=== PATIENT | male | born 1960 | race Caucasian/White ===

== ENCOUNTER 2019-12-21 14:41 | Inpatient (IN) ==
[2019-12-21] MEDS ORDERED: ASPIRIN CHEW 324 MG PO STA (15:11)
--- NOTE | 2019-12-21 15:23 | Emergency Department Note ---
History of Present Illness General Chief complaint: Chest Pain Stated complaint: CHEST PAIN Time Seen by Provider: 12/21/19 14:49 History of Present Illness Maximum Pain Intensity: 7 59-year-old male who presents to the emergency department with complaint of chest pain that started this morning around 3:57 AM. The patient reports that he woke up thinking that he was having reflux. He does have a history of frequent reflux, reporting that he eats late of an evening before going to bed. The patient is currently not on any reflux medications. 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 The school nurse gave the patient some Advil as there was no aspirin available. It was recommended that the patient come to the emergency department for further evaluation. The patient admits that the pain has somewhat improved since that time, currently rating his discomfort a 3 out of 10. The pain did radiate to the right neck and left shoulder region. The patient did not notice any worsening pain with position or activity. Other than prior history of hypertension and kidney stones, the patient denies history of hyperlipidemia or diabetes. His brother at the age of 53 from a myocardial infarction. The patient has not noticed any peripheral edema. He denies any extended travel. He denies prior history of clotting disorders or blood clots. His last physical within the past month was normal. Home Medications Home Medications Medication Instructions Recorded Confirmed Type ibuprofen [Advil] 400 mg PO Q6H PRN 12/21/19 12/21/19 History lactobacillus combination no.4 0 mmu cells PO DAILY 12/21/19 12/21/19 History [Probiotic] magnesium oxide,aspartate,citr 1 mg PO DAILY 12/21/19 12/21/19 History [Triple Magnesium Complex] multivitamin 1 tab PO DAILY 12/21/19 12/21/19 History Allergies Allergy/AdvReac Type Severity Reaction Status Date / Time No Known Allergies Allergy Verified 12/21/19 16:59 Past Med/Surg History Medical History Kidney stones Surgical History Hx of tonsillectomy Family History Brother Heart disease Fatal [place] at age 53 Social History Smoking Status: Never smoker Second Hand Exposure: No; Do You Dip or Chew Tobacco: No; Tobacco Cessation Education Requested by Patient: No Hx Alcohol Use: Yes Alcohol Intake Frequency: 2-3 x/Week Hx Substance Use: No Preferred Language: [place]al[place] Communication Ability: Effective Resaw Operator Required: No Beliefs That Will Affect Care: None marital status: Current Living Situation: Spouse current occupational status: employed Other Information That Helps Us Care for You: No Feels Safe at Home: Yes Safety Concerns: Feels Safe At This Time Assistive Devices: None Review of Systems 10 system review was performed and was negative except for pertinent positives and negatives as indicated in history of present illness Physical Exam Vital Signs Vital Signs - 24 hr 12/21/19 14:46 12/21/19 15:11 12/21/19 16:00 Temperature 36.5 C Temperature Source Oral Pulse Rate 58 L 57 L 61 Pulse Rate from SpO2 Sensor 55 L Respiratory Rate 18 20 15 Respiratory Effort / Characteristics Non-Labored Spontaneous Respiratory Depth Normal Respiratory Pattern Regular Blood Pressure 151/99 H Blood Pressure Mean 111 Blood Pressure Position Sitting Pulse Oximetry 97 95 Oxygen Delivery Method Room Air Room Air Room Air Sepsis Recent Fever Within 48 Hours No Sepsis New/Unexplained Change in Mental Status N/A Sepsis Action Taken by Nursing No Action Required 12/21/19 16:24 12/21/19 16:30 12/21/19 17:00 Temperature Temperature Source Pulse Rate 61 60 66 Pulse Rate from SpO2 Sensor 61 59 L 64 Respiratory Rate 20 17 17 Respiratory Effort / Characteristics Respiratory Depth Respiratory Pattern Blood Pressure 142/84 H 128/93 151/91 H Blood Pressure Mean 113 111 104 Blood Pressure Position Pulse Oximetry 97 97 98 Oxygen Delivery Method Room Air Room Air Sepsis Recent Fever Within 48 Hours Sepsis New/Unexplained Change in Mental Status Sepsis Action Taken by Nursing 12/21/19 17:35 Temperature Temperature Source Pulse Rate 66 Pulse Rate from SpO2 Sensor Respiratory Rate 17 Respiratory Effort / Characteristics Respiratory Depth Respiratory Pattern Blood Pressure 151/91 H Blood Pressure Mean Blood Pressure Position Pulse Oximetry 98 Oxygen Delivery Method Room Air Sepsis Recent Fever Within 48 Hours Sepsis New/Unexplained Change in Mental Status Sepsis Action Taken by Nursing CONSTITUTIONAL: Healthy and well nourished. Patient does not appear in any acute distress. HEENT: Normocephalic, atraumatic. Pupils equal, round and reactive. No scleral icterus or conjunctival injection/pallor. NECK: Full active range of motion without discomfort. No JVD or carotid bruits. LYMPHATICS: No cervical chain adenopathy. RESPIRATORY: Clear to auscultation bilaterally with no wheezing, crackles, rhonchi or stridor. CARDIOVASCULAR: Regular rate and rhythm with no murmurs, rubs or gallops. GASTROINTESTINAL: Bowel sounds present in all quadrants. Abdomen is soft and nontender to palpation. No abdominal bruits on auscultation, or palpable p ulsatile masses. MUSCULOSKELETAL: Full range of motion of all joints without discomfort. INTEGUMENTARY: No rash or other significant dermatologic conditions noted. HEMATOLOGIC: No ecchymosis or petechiae. PSYCHIATRIC: Positive affect. NEUROLOGIC: No focal neurologic deficits noted. Course Course Patient history and physical exam were performed. Nurses notes were reviewed. Vital signs were reviewed. The patient is mildly bradycardic at 58 bpm. He is not tachypneic or febrile. IV access was established, and labs were drawn. The patient was administered aspirin 324 mg. An initial ECG showed a sinus bradycardia 59 bpm with a PVC. No ST elevations or T wave inversions noted. The patient was placed on monitor car operator. A portable chest x-ray did not show any consolidations, failure pattern, pneumothorax, subdiaphragmatic free air or cardiomegaly. Review of labs shows a troponin of 1.69. CBC, coagulation studies, D-dimer and CMP are otherwise grossly normal. Total CK is normal with a CK-MB of 15.1. Lipase was also normal. Upon reevaluation of the patient, he reported that he was pain-free "the best I felt all day". Findings were discussed with Dr. Márquez, ED attending physician, as well as Dr. Hairston, area intelligence technician, and LORENZO Moreno. The patient was ultimately taken to the cardiac [facility]. I did initially speak with the cardiac cath nurse regarding administering heparin she requested that we not do so until they evaluate him. Administered Medications Sodium Chloride (Nss 1000ml) 1,000 mls @ 100 mls/hr IV .Q10H PEPITO Stop: 12/22/19 03:44 Last Admin: 12/21/19 21:52 Dose: 100 mls/hr Documented by: [id number] Heparin Sodium/Dextrose (Heparin Sodium/Dextrose) 25,000 units in 500 mls @ 28 mls/hr IV .[id number] [facility]; Protocol Stop: 01/20/20 20:14 Last Admin: 12/21/19 21:51 Dose: 1,400 units/hr, 28 mls/hr Documented by: [id number] Cosigned by: [id number] Metoprolol Tartrate (Metoprolol Tartrate 25 Mg Tab) 25 mg PO BID PEPITO Stop: 01/20/20 20:59 Last Admin: 12/21/19 23:08 Dose: 25 mg Documented by: [id number] Discontinued Medications Aspirin (Aspirin Chew 324 Mg) 324 mg PO NOW STA Stop: 12/21/19 15:12 Last Admin: 12/21/19 15:34 Dose: 324 mg Documented by: [id number] Fentanyl Citrate (Fentanyl Citrate 100 Mcg/2 Ml Vial) Confirm Administered Dose 100 mcg .ROUTE .STK-MED ONE Stop: 12/21/19 17:19 Last Increment: 12/21/19 18:52 Dose: 25 mcg Documented by: [id number] Increment: 12/21/19 18:47 Dose: 50 mcg Documented by: [id number] Heparin Sodium (Porcine) (Heparin Sod (Porcine) 1000 Unit/Ml 10 Ml Vial) 8,000 units IV ONE ONE Stop: 12/21/19 16:33 Last Admin: 12/21/19 16:56 Dose: 8,000 units Documented by: [id number] Cosigned by: [id number] Heparin Sodium (Porcine) (Heparin Sod (Porcine) 1000 Unit/Ml 10 Ml Vial) Confirm Administered Dose 10,000 units .ROUTE .STK-MED ONE Stop: 12/21/19 16:50 Last Admin: 12/21/19 16:58 Dose: Not Given Documented by: [id number] Heparin Sodium (Porcine) (Heparin (Porcine) 1000 Unit/Ml 10 Ml ([facility] Use Only)) Confirm Administered Dose 10,000 units .ROUTE .STK-MED ONE Stop: 12/21/19 17:19 Last Admin: 12/21/19 18:47 Dose: 4,000 units Documented by: [id number] Heparin Sodium/Dextrose (Heparin Iv Standard *No* Bolus) 1 ea IV Q15M [facility]; Protocol Stop: 12/21/19 21:31 Last Admin: 12/21/19 22:46 Dose: Not Given Documented by: [id number] Admin: 12/21/19 22:45 Dose: Not Given Documented by: [id number] Admin: 12/21/19 22:45 Dose: Not Given Documented by: [id number] Admin: 12/21/19 22:45 Dose: Not Given Documented by: [id number] Heparin Sodium/Sodium Chloride (Heparin In Nss Infusion 1000 Unit/500 Ml (2 U/Ml) Bag) Confirm Administered Dose 3,000 units IV .STK-MED ONE Stop: 12/21/19 17:20 Last Admin: 12/21/19 18:47 Dose: 3,000 units Documented by: [id number] Midazolam HCl (Midazolam Hcl 1 Mg/Ml 2ml Vial) Confirm Administered Dose 2 mg .ROUTE .STK-MED ONE Stop: 12/21/19 17:19 Last Admin: 12/21/19 18:47 Dose: 2 mg Documented by: [id number] Miscellaneous Information (Patient's Allergy Info Needs Entered) 1 ea N/A NOW STA Stop: 12/21/19 16:43 Last Admin: 12/21/19 16:58 Dose: 1 ea Documented by: [id number] Nicardipine HCl (Nicardipine Hcl Inj 2.5 Mg/Ml 10 Ml Amp) Confirm Administered Dose 25 mg .ROUTE .STK-MED ONE Stop: 12/21/19 17:19 Last Admin: 12/21/19 18:47 Dose: 25 mg Documented by: [id number] Nitroglycerin/Dextrose (Nitroglycerin/D5w 100mcg/Ml 20ml Syr) Confirm Administered Dose 2,000 mcg .ROUTE .STK-MED ONE Stop: 12/21/19 17:20 Last Admin: 12/21/19 18:48 Dose: 2,000 mcg Documented by: [id number] Ticagrelor (Ticagrelor 90 Mg Tab) Confirm Administered Dose 180 mg PO .STK-MED ONE Stop: 12/21/19 18:47 Last Admin: 12/21/19 18:48 Dose: 180 mg Documented by: [id number] Critical Care Time Critical Care Time: Yes Total Critical Care Time: 35 I have personally spent 35 minutes of critical care time in the direct management of this patient. This includes bedside care, interpretation of diagnostic studies, and testing, discussion with consultants, patient, and family members, and other required patient management activities. This 35 minutes is in excess of all separately billable procedures. Medical Decision Making Medical Records Attestation: I reviewed the patient's medical records. Home Medications Current Medication List: was personally reviewed by me Laboratory Data Attestation: I reviewed the patient's lab results. Result diagrams: 12/21/19 15:15 12/21/19 15:15 Lab Results 12/21/19 12/21/19 12/21/19 Range/Units 15:15 15:15 15:15 WBC 8.64 (4.8-10.8) K/uL RBC 4.92 (4.7-6.1) M/uL Hgb 15.6 (14.0-18.0) g/dL Hct 44.8 (42-52) % MCV 91.1 (80-100) fL MCH 31.7 (25-34) pg MCHC 34.8 (32-36) g/dL RDW Std Deviation 40.9 (36.4-46.3) fL RDW Coeff of Devin 12.2 (11.5-14.5) % Plt Count 248 (130-400) K/uL MPV 9.3 (7.4-10.4) fL Immature Gran % (Auto) 0.2 % Neut % (Auto) 60.6 % Lymph % (Auto) 25.5 % [place] % (Auto) 10.4 % Eos % (Auto) 2.7 % Baso % (Auto) 0.6 % Neut # (Auto) 5.24 (1.4-6.5) K/uL Lymph # (Auto) 2.20 (1.2-3.4) K/uL [place] # (Auto) 0.90 H (0.11-0.59) K/uL Eos # (Auto) 0.23 (0-0.5) K/uL Baso # (Auto) 0.05 (0-0.2) K/uL Immature Gran # (Auto) 0.02 (0.00-0.02) K/uL PT 10.4 (9.0-12.0) Seconds INR 1.0 (0.9-1.1) APTT 27.6 (21.0-31.0) Seconds PTT Ratio 1.0 D-Dimer 190 (0-500) ug/L FEU Sodium 141 (136-145) mmol/L Potassium 4.0 (3.5-5.1) mmol/L Chloride 107 (98-107) mmol/L Carbon Dioxide 30 (21-32) mmol/L Anion Gap 4.0 (3-11) BUN 15 (7-18) mg/dl Creatinine 1.10 (0.6-1.4) mg/dl Est Cr Clr Drug Dosing 79.9 ml/min Est GFR ( Amer) 85.3 Est GFR (Non-Af Amer) 73.6 BUN/Creatinine Ratio 13.7 (10-20) Glucose 69 L (70-99) mg/dl Calcium 8.7 (8.5-10.1) mg/dl Total Bilirubin 0.4 (0.2-1) mg/dl AST 27 (15-37) U/L ALT 36 (12-78) U/L Alkaline Phosphatase 70 (45-117) U/L Total Creatine Kinase 240 (39-308) U/L CK-MB (CK-2) 15.1 H (0.5-3.6) ng/ml CK/CKMB % Calc 6.3 H (0-3.0) Troponin I 1.690 H* (0-0.045) ng/ml Total Protein 7.7 (6.4-8.2) gm/dl Albumin 3.8 (3.4-5.0) gm/dl Globulin 3.9 (2.5-4.0) gm/dl Albumin/Globulin Ratio 1.0 (0.9-2) Lipase 101 (73-393) U/L COVID-19 Eval Order SARS-CoV-2, RNA, NAAT (NEGATIVE) 12/21/19 12/21/19 Range/Units 16:40 16:40 WBC (4.8-10.8) K/uL RBC (4.7-6.1) M/uL Hgb (14.0-18.0) g/dL Hct (42-52) % MCV (80-100) fL MCH (25-34) pg MCHC (32-36) g/dL RDW Std Deviation (36.4-46.3) fL RDW Coeff of Devin (11.5-14.5) % Plt Count (130-400) K/uL MPV (7.4-10.4) fL Immature Gran % (Auto) % Neut % (Auto) % Lymph % (Auto) % [place] % (Auto) % Eos % (Auto) % Baso % (Auto) % Neut # (Auto) (1.4-6.5) K/uL Lymph # (Auto) (1.2-3.4) K/uL [place] # (Auto) (0.11-0.59) K/uL Eos # (Auto) (0-0.5) K/uL Baso # (Auto) (0-0.2) K/uL Immature Gran # (Auto) (0.00-0.02) K/uL PT (9.0-12.0) Seconds INR (0.9-1.1) APTT (21.0-31.0) Seconds PTT Ratio D-Dimer (0-500) ug/L FEU Sodium (136-145) mmol/L Potassium (3.5-5.1) mmol/L Chloride (98-107) mmol/L Carbon Dioxide (21-32) mmol/L Anion Gap (3-11) BUN (7-18) mg/dl Creatinine (0.6-1.4) mg/dl Est Cr Clr Drug Dosing ml/min Est GFR ( Amer) Est GFR (Non-Af Amer) BUN/Creatinine Ratio (10-20) Glucose (70-99) mg/dl Calcium (8.5-10.1) mg/dl Total Bilirubin (0.2-1) mg/dl AST (15-37) U/L ALT (12-78) U/L Alkaline Phosphatase (45-117) U/L Total Creatine Kinase (39-308) U/L CK-MB (CK-2) (0.5-3.6) ng/ml CK/CKMB % Calc (0-3.0) Troponin I (0-0.045) ng/ml Total Protein (6.4-8.2) gm/dl Albumin (3.4-5.0) gm/dl Globulin (2.5-4.0) gm/dl Albumin/Globulin Ratio (0.9-2) Lipase (73-393) U/L COVID-19 Eval [facility] SARS-CoV-2, RNA, NAAT NEGATIVE (NEGATIVE) Imaging Data Attestation: I personally reviewed and interpreted this imaging study as fol lows: My Impression: My interpretation of reportable chest x-ray does not show any consolidations, pneumothorax, cardiac prominence or subdiaphragmatic air. Radiologist report was also reviewed. Radiologist's Impression: XR chest 1V portable HISTORY: 59 years-old Male Chest Pain acute atypical chest pain COMPARISON: None TECHNIQUE: Portable AP view of the chest FINDINGS: Cardiac silhouette is upper limits of normal in size. No pneumothorax, pleural effusion, airspace consolidation or overt pulmonary edema. Mild right hemidiaphragmatic elevation. Degenerative changes of the shoulders and spine. IMPRESSION: No acute process. ECG Data Attestation: I personally reviewed and interpreted this ECG as follows: Indication: + chest pain, + diaphoresis, + nausea and + SOB/dyspnea Rate (beats per minute): 59 Rhythm: + sinus bradycardia ECG Intervals/blocks: + Normal QRS and + Normal QT ECG [place]: + Normal ECG Findings: + PVCs Comparison ECG Date: no prior available Blood Pressure Blood Pressure Findings: Normal blood pressure MDM Narrative Cardiac monitoring: An order was placed for continuous cardiac monitoring. The monitor shows a rate of 59 bpm with a normal sinus rhythm and PVC rhythm. air sampling and monitoring history was reviewed throughout the evaluation, and no dys rhythmias were noted. Findings today show evidence for a non-STEMI. Patient has typical symptoms for major cardiac event. HEART score = 2-3 given age, obesity and family history of myocardial infarction. PERC score is 0, and with a normal D-dimer, I do not suspect pulmonary embolism. Chest x-ray does not show evidence for pneumonia, pneumothorax or heart failure. Additional laboratory studies are not suggestive of pancreatitis, cholecystitis or hepatitis. The patient is afebrile and has no leukocytosis or other symptoms to suggest upper respiratory infection. Impression & Plan NSTEMI (non-ST elevated myocardial infarction) Discharge Plan Visit Data Chief Complaint: Chest Pain Stated Complaint: CHEST PAIN ED Provider: Mercy Márquez ED Midlevel Provider: Zackary Goncalves Discharge Problem: NSTEMI (non-ST elevated myocardial infarction) Patient Disposition: Still a Patient Discharge Instructions Interventions: ED Discharge Assessment Last Done: 12/21/19 17:35
[2019-12-21 15:25] LABS: Basophils # (auto) 0.05 K/uL (0-0.2); Basophils % (auto) 0.6 %; Eosinophils # (auto) 0.23 K/uL (0-0.5); Eosinophils % (auto) 2.7 %; Hematocrit (blood only) 44.8 % (42-52); Hemoglobin 15.6 g/dL (14.0-18.0); Immature Granulocytes # (auto) 0.02 K/uL (0.00-0.02); Immature Granulocytes % (auto) 0.2 %; Lymphocytes % (auto) 25.5 %; Mean Corpuscular Hemoglobin 31.7 pg (25-34); Mean Corpuscular Hgb Conc 34.8 g/dL (32-36); Mean Corpuscular Volume 91.1 fL (80-100); Mean Platelet Volume 9.3 fL (7.4-10.4); Monocytes % (auto) 10.4 %; Neutrophils # (auto) 5.24 K/uL (1.4-6.5); Neutrophils % (auto) 60.6 %; Platelet Count 248 K/uL (130-400); RDW Coefficient of Variation 12.2 % (11.5-14.5); RDW Standard Deviation 40.9 fL (36.4-46.3); Red Blood Count 4.92 M/uL (4.7-6.1); White Blood Count 8.64 K/uL (4.8-10.8)
[2019-12-21 15:36] LABS: D Dimer 190 ug/L FEU (0-500); Partial Thromboplastin Time 27.6 Seconds (21.0-31.0); Prothrombin Time 10.4 Seconds (9.0-12.0)
--- NOTE | 2019-12-21 15:37 | XRay Report ---
XR chest 1V portable HISTORY: 59 years-old Male Chest Pain acute atypical chest pain COMPARISON: None TECHNIQUE: Portable AP view of the chest FINDINGS: Cardiac silhouette is upper limits of normal in size. No pneumothorax, pleural effusion, airspace con solidation or overt pulmonary edema. Mild right hemidiaphragmatic elevation. Degenerative changes of the shoulders and spine. IMPRESSION: No acute process. ACT 112: Negative or not required by law. The above report was generated using voice recognition software. It may contain grammatical, syntax o r spelling errors. Electronically signed by: Garfield Alvarez M.D. 12/21/2019 3:36 PM
[2019-12-21 15:45] LABS: Albumin Level 3.8 gm/dl (3.4-5.0); BUN Creatinine Ratio 13.7 (10-20); Calcium 8.7 mg/dl (8.5-10.1); Creatinine Clr Calc Pharmacy 79.9 ml/min; Est GFR (African American) 85.3; Est GFR (Non-African American) 73.6
[2019-12-21 15:53] LABS: Bilirubin,Total 0.4 mg/dl (0.2-1); Creatine Kinase MB 15.1 ng/ml (0.5-3.6); Globulin 3.9 gm/dl (2.5-4.0); Total Protein 7.7 gm/dl (6.4-8.2); Troponin I 1.69 ng/ml (0-0.045)
[2019-12-21] MEDS ORDERED: HEPARIN SOD (PORCINE) 1000 UNIT/ML 10 ML VIAL IV ONE (16:32)
[2019-12-21] MEDS ORDERED: PATIENT'S ALLERGY INFO NEEDS ENTERED STA (16:42)
[2019-12-21] MEDS ORDERED: HEPARIN SOD (PORCINE) 1000 UNIT/ML 10 ML VIAL ONE (16:49)
[2019-12-21] MEDS ORDERED: fentaNYL citrate 100 MCG/2 ML VIAL ONE (17:18)
[2019-12-21] MEDS ORDERED: niCARdipine HCL INJ 2.5 MG/ML 10 ML AMP ONE (17:18)
[2019-12-21] MEDS ORDERED: MIDAZOLAM HCL 1 MG/ML 2ML VIAL ONE (17:18)
[2019-12-21] MEDS ORDERED: HEPARIN (PORCINE) 1000 UNIT/ML 10 ML (CATH LAB USE ONLY) ONE (17:18)
[2019-12-21] MEDS ORDERED: NITROGLYCERIN/D5W 100MCG/ML 20ML SYR ONE (17:19)
--- NOTE | 2019-12-21 17:52 | Pre Anesthesia Assessment ---
Date of Service December 21, 2019 Pre Sedation Assessment Vital Signs Temp Pulse Resp BP Pulse Ox 12/21/19 17:35 66 17 151/91 H 98 12/21/19 17:00 66 17 151/91 H 98 12/21/19 16:30 60 17 128/93 97 12/21/19 16:24 61 20 142/84 H 97 12/21/19 16:00 61 15 95 12/21/19 15:11 57 L 20 151/99 H 12/21/19 14:46 97.7 F 58 L 18 97 Cardiovascular RRR, no murmur, no edema Respiratory normal respiratory effort, lungs clear to auscultation Pre-Sedation Airway Assessment Smoking Status: Never smoker Hx Sleep Apnea: No Hx Difficult Intubation: No Short, Thick Neck: No Thyromental Distance: > or= 3.5 Finger Breadths Oral Cavity: + WNL Mallampati Class: III ASA: ASA3 Procedure Planning Contraindications for Sedation: none Current Medications Reviewed: Yes Notes The planned sedation has been discussed with the patient. Informed Consent was obtained. I have identified the patient, determined the appropriateness of sedation and have assessed the patient immediately prior to the procedure. All medicine(s) and interventions are by my order.
--- NOTE | 2019-12-21 17:55 | History & Physical Report ---
Date of Service December 21, 2019 Assessment & Plan (1) NSTEMI (non-ST elevated myocardial infarction): -Patient presenting with reports of chest discomfort, diaphoresis, shortness of breath, lightheadedness -In the ED, initial troponin 1.69, EKG without acute ST changes -Risk factors: + Family history (brother fatal [place] at age 53) -Patient currently chest pain-free, hemodynamically stable -Received full dose aspirin -ED notified Dr. Hairston, plan cardiac catheterization this evening -Heparin [address] Hairston -Further recommendations after cardiac cath (2) DVT prophylaxis: -SCDs for now History of Present Illness Chief Complaint: Chest pain Primary Care Provider: Efren Faria MD 59-year-old male with no significant PMH who presents to the ED for evaluation of chest pain. Patient reports he woke up around 3:00 this morning with feelings of indigestion and anxiety. Patient reports he was able to fall back asleep. He woke up feeling in his usual state of health and had his usual cup of coffee. Patient reports that while he was driving to work, he started to feel indigestion again. 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 Patient was seen by the school nurse and was given Advil. Patient reports he started to feel better after that. Patient called PCPs office to make an appointment however was referred to the ED for further evaluation. Patient reports he has been having feelings of indigestion over the past several weeks. Currently, patient reports he is chest pain-free. He reports he otherwise has been feeling well recently. No other recent illnesses, fevers, chills. Denies abdominal pain, nausea, vomiting, diarrhea. No cough or sputum production. Denies urinary symptoms. In the ED, initial troponin is 1.69, EKG without acute ST changes. Patient is hemodynamically stable. Dr. Hairston was notified by the ED and patient will be going to the [facility] H[facility] Supervisor this evening. Patient received a full dose aspirin and heparin 8000 unit bolus. Allergies Allergy/AdvReac Type Severity Reaction Status Date / Time No Known Allergies Allergy Verified 12/21/19 16:59 Home Medications Home Medications Medication Instructions Recorded Confirmed Type ibuprofen [Advil] 400 mg PO Q6H PRN 12/21/19 12/21/19 History lactobacillus combination no.4 0 mmu cells PO DAILY 12/21/19 12/21/19 History [Probiotic] magnesium oxide,aspartate,citr 1 mg PO DAILY 12/21/19 12/21/19 History [Triple Magnesium Complex] multivitamin 1 tab PO DAILY 12/21/19 12/21/19 History Past Med/Surg History Medical History Kidney stones Surgical History Hx of tonsillectomy Family History (Updated 12/21/19 @ 19:23 by LORENZO Valenzuela) Brother Heart disease Fatal [place] at age 53 Social History Smoking Status: Never smoker Second Hand Exposure: No; Do You Dip or Chew Tobacco: No; Tobacco Cessation Education Requested by Patient: No Hx Alcohol Use: Yes Alcohol Intake Frequency: 2-3 x/Week Hx Substance Use: No Preferred Language: Lao Communication Ability: Effective Wet Suit Gluer Required: No Beliefs That Will Affect Care: None marital status: Current Living Situation: Spouse current occupational status: employed Other Information That Helps Us Care for You: No Feels Safe at Home: Yes Safety Concerns: Feels Safe At This Time Assistive Devices: None Review of Systems Review of Systems: ROS per HPI, all other systems reviewed and negative Physical Exam Constitutional: WD/WN, vitals as above Eyes: PERRL, conjunctivae normal, anicteric sclerae ENMT: external ear and nose normal, oropharynx normal Respiratory: normal respiratory effort, lungs clear to auscultation Cardiovascular: Rate/Rhythm: regular rate and regular rhythm Vessels: normal peripheral pulses Extremities: no edema Gastrointestinal (Abdomen): normal bowel sounds, soft, nontender, no hepatosplenomegaly Musculoskeletal: no cyanosis or clubbing, extremities motor strength 5/5 Skin: no rashes, warm and dry Neurologic: PERRL, EOMI, accommodation nl, no face palsy, no dysarthria Psychiatric: A+Ox3, euthymic affect Results & Data Results & Data ([facility]) Vital Signs (Past 12 Hours) Vital Signs Temp Pulse Resp BP Pulse Ox 12/21/19 17:35 66 17 151/91 H 98 12/21/19 17:00 66 17 151/91 H 98 12/21/19 16:30 60 17 128/93 97 12/21/19 16:24 61 20 142/84 H 97 12/21/19 16:00 61 15 95 12/21/19 15:11 57 L 20 151/99 H 12/21/19 14:46 36.5 C 58 L 18 97 Laboratory Results Short CBC 12/21/19 Range/Units 15:15 WBC 8.64 (4.8-10.8) K/uL Hgb 15.6 (14.0-18.0) g/dL Hct 44.8 (42-52) % Plt Count 248 (130-400) K/uL BMP 12/21/19 15:15 Sodium 141 Potassium 4.0 Chloride 107 Carbon Dioxide 30 BUN 15 Creatinine 1.10 Glucose 69 L Calcium 8.7 Cardiac Enzymes 12/21/19 Range/Units 15:15 Total Creatine Kinase 240 (39-308) U/L CK-MB (CK-2) 15.1 H (0.5-3.6) ng/ml Troponin I 1.690 H* (0-0.045) ng/ml Liver Function 12/21/19 Range/Units 15:15 Total Bilirubin 0.4 (0.2-1) mg/dl AST 27 (15-37) U/L ALT 36 (12-78) U/L Alkaline Phosphatase 70 (45-117) U/L Albumin 3.8 (3.4-5.0) gm/dl Diagnostic Findings CXR IMPRESSION: No acute process. 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 He has not had this kind of pain before and the pain is associated with shortness of breath Has been free of any pain in the emergency room and the relevant blood test showed that his troponin is elevated He was taken to cardiac [facility] Supervisor from the emergency room On examination Lying in bed comfortably Hemodynamically stable blood pressure towards upper side at 151/91 Chest-clear to auscultate bilaterally Heart-S1-S2 no murmur appreciated Abdomen-benign Extremities-negative for any edema MEDICAL DELIVERY DRIVER-alert, awake and oriented x3 His admission labs, EKG and imaging studies reviewed Troponin is elevated to 1.690 without any significant EKG changes Has NSTEMI and the patient will be going to cardiac [facility] Supervisor Agree with assessment and plan as outlined above by Kathrin Murphy
--- NOTE | 2019-12-21 17:57 | Cardiology Consultation ---
Date of Consultation December 21, 2019 Assessment & Plan (1) NSTEMI (non-ST elevated myocardial infarction): Patient here with high risk NSTEMI and recommend further evaluation with urgent cardiac catheterization. Discussed risk, benefits, alternatives of procedure and he is willing to proceed. Further recommendations pending findings of catheterization. History of Present Illness History of Present Illness Mr. Chamberlain is a very pleasant 59-year-old man seen urgently in the ED in the setting of NSTEMI. Patient reports chest pain beginning approximately 830 this morning, around 9 hours prior to time of interview. Reports intermittent less severe chest discomfort throughout today. Denies having similar pain in the past. Has been in his usual state of health prior to pain beginning. At baseline active wi thout any change in recent exercise tolerance. In ED 2 out of 10 chest pain. Hypertensive to 150s. Initial EKG showed sinus bradycardia with no significant ST changes and occasional PVCs. Initial troponin elevated at 1.6. Chest x-ray unremarkable. Given aspirin, heparin in ED. Currently patient chest pain-free. Past medical historyhistory of kidney stones. Family history remarkable for brother who from [place] at age 53. Social history: Denies tobacco, heavy alcohol use. Allergies Allergy/AdvReac Type Severity Reaction Status Date / Time No Known Allergies Allergy Verified 12/21/19 16:59 Home Medications Home Medications Medication Instructions Recorded Confirmed Type ibuprofen [Advil] 400 mg PO Q6H PRN 12/21/19 12/21/19 History lactobacillus combination no.4 0 mmu cells PO DAILY 12/21/19 12/21/19 History [Probiotic] magnesium oxide,aspartate,citr 1 mg PO DAILY 12/21/19 12/21/19 History [Triple Magnesium Complex] multivitamin 1 tab PO DAILY 12/21/19 12/21/19 History Patient History Medical History Kidney stones Surgical History Hx of tonsillectomy Family History (Updated 12/21/19 @ 19:23 by LORENZO Valenzuela) Brother Heart disease Fatal [place] at age 53 Social History Smoking Status: Never smoker Second Hand Exposure: No; Do You Dip or Chew Tobacco: No; Tobacco Cessation Education Requested by Patient: No Hx Alcohol Use: Yes Alcohol Intake Frequency: 2-3 x/Week Hx Substance Use: No Preferred Language: Tamazight Communication Ability: Effective Strip Stamp Straightener Required: No Beliefs That Will Affect Care: None marital status: Current Living Situation: Spouse current occupational status: employed Other Information That Helps Us Care for You: No Feels Safe at Home: Yes Safety Concerns: Feels Safe At This Time Assistive Devices: None Review of Systems Review of Systems: All systems reviewed & are unremarkable except as noted in HPI & below Physical Exam Physical Exam: General: Comfortable, no acute distress HEENT: Sclerae anicteric, mucous membranes moist Lungs: Clear to auscultation bilaterally, no rhonchi or wheezes Cardiac: Regular rate and rhythm, no murmurs. No JVD. Abdomen: Soft, nontender, nondistended, positive bowel sounds. Extremities: Warm, well perfused, no edema. 2+ radial pulses Skin: No rashes or lesions. Neuro: Nonfocal Psych: Alert orient x3, normal affect and mood Results & Data ([facility]) Vital Signs (Past 12 Hours) Vital Signs Temp Pulse Resp BP Pulse Ox 12/21/19 17:35 66 17 151/91 H 98 12/21/19 17:00 66 17 151/91 H 98 12/21/19 16:30 60 17 128/93 97 12/21/19 16:24 61 20 142/84 H 97 12/21/19 16:00 61 15 95 12/21/19 15:11 57 L 20 151/99 H 12/21/19 14:46 97.7 F 58 L 18 97 PG Care Time/CCT Total # of Minutes Spent Total Time Spent with Patient: Total time spent is greater than 50% in coordination of care (as documented) at patient's floor/unit and/or counseling patient: Coding Level of Care Code 04618 Inpt Consult Level 4 Diagnoses NSTEMI (non-ST elevated myocardial infarction) I21.4
[2019-12-21] MEDS ORDERED: TICAGRELOR 90 MG TAB PO ONE (18:46)
[2019-12-21] MEDS ORDERED: ACETAMINOPHEN 325 MG TAB PO PRN (19:19)
[2019-12-21] MEDS ORDERED: NITROGLYCERIN SL 0.4 MG/TAB TAB SL PRN (19:19)
--- NOTE | 2019-12-21 20:12 | Post Anesthesia Assessment ---
Date of Service December 21, 2019 Post Sedation Assessment Vital Signs Temp Pulse Resp BP Pulse Ox 12/21/19 17:35 66 17 151/91 H 98 12/21/19 17:00 66 17 151/91 H 98 12/21/19 16:30 60 17 128/93 97 12/21/19 16:24 61 20 142/84 H 97 12/21/19 16:00 61 15 95 12/21/19 15:11 57 L 20 151/99 H 12/21/19 14:46 97.7 F 58 L 18 97 Recovery Score Activity: Moves 4 extremities Respiration: Deep Breath/Cough Circulation: +/-20% PreAnes Value Consciousness: Fully Awake Oxygen Saturation: O2 needed for >90% Discharge Sedation Level of Care: Fast Track Phase II Post Sedation Plan On clinical assessment, the patient appears to have tolerated the sedation without complications. Patient is recovering as anticipated. Patient will continue to be monitored by nursing and may be discharged when sedation discharge criteria are met per below protocol. Upon Completions of procedure up to 15 minutes continue every 5 minute vital signs and the P.A.R. score; then discharge to a Phase I or Fast Track to Phase II per the following guidelines: * Discharge Patient to appropriate Phase II area if PAR is 8 or greater or return to pre- procedure baseline. The post - procedure orders will be as directed. * If PAR score is less than 8 or not return to pre-procedure baseline then patient will follow Phase I monitoring till PAR is reached for Phase II. The Phase I may be done in procedure room or may call to secure a Phase I area. * If naloxone or flumazenil are used for reversal, hold in Phase I for continued monitoring from when last reversal dose was given for a minimum of 60 minutes or longer pending the nurse and/or physician discretion of patient condition before discharge to Phase II. Please call the Sedation Physician to re-evaluate and complete post-note for discharge to Phase II area. Do NOT discharge from procedure sedation or Phase 1 until post- sedation evaluation note is complete by procedure /sedation MD Sedation Discharge Instructions to be given to the patient at discharge to home.
[2019-12-21] MEDS ORDERED: SODIUM CHLORIDE 0.9% 1000ML 1,000 ML IV SCH (20:15)
--- NOTE | 2019-12-21 20:23 | Post Operative Brief Note ---
Cardiology Brief Post Op Date of Surgery December 21, 2019 Pre & Post Diagnosis NSTEMI Procedure Cardiac catheterization/PCI Control Electrician Addi Hairston MD Senior Integration Architect Azael Estimated Blood Loss 10 Findings Consistent with Post-Op Diagnosis Severe 2 vessel CAD - 80% proximal LAD at bifurcation with D2 that has 95% ostial stenosis - 70-80% mid LAD. - Small D3 90% ostial stenosis - proximal RCA 90% - late-mid RCA 60%. Successful PCI of proximal to mid RCA with 3.0 x 18 mm Óscar JOI (post-dilated with 4.0 NC). Anesthesia Type RN Sedation Complications none Disposition Accompanied Patient To Recovery: No Disposition: PCU
[2019-12-21] MEDS: HEPARIN SODIUM/DEXTROSE 25,000 UNITS/500 ML BAG IV SCH (21:51)
--- NOTE | 2019-12-21 22:28 | Cardiac Catheterization ---
[facility] Data: Assignment Editor Cardiac Status Clinical evaluation leading to the procedure CAD Presenation: Non STEMI Anginal Classification: CCS IV Heart Failure: No Cardiogenic Shock within 24 Hours: No Cardiac Arrest within 24 Hours: No Imaging Studies Past 6 Months: No Stress Studies Past 6 Months: No Diagnostic Physicians Name: Addi Hairston MD Status: Urgent Closure Device Percutaneous Entry Location: Radial Closure Device: Radial Band Recommendations: PCI without planned CABG PCI Indication: PCI for high risk Non-MALOU Lesion Segment Name: Mid RCA Culprit Artery: Yes Stenosis Prior to Rx (%): 90 Chronic Total Occlusion: No IVUS: Yes FFR: No Pre-Procedure MONA Flow: 3 Previously Treated Lesion: No Lesion Complexity: Non-High/Non-C Lesion Length (mm): 15 Thrombus Present: No Bifurcation Lesion: No Guidewire Across Lesion: Stenosis Post-Procedure (%): 0 Post-Procedure MONA Flow: 3 Devices(s) Deployed: Yes Yes Intraprocedure Events Significant Disection: No Perforation: No Cardiac Cath Procedure Full Procedure Date December 21, 2019 Pre-Procedure Diagnosis Pre-Procedure Diagnosis: Non STEMI AUC Score AUC Score: 8 Post-Procedure Diagnosis Post-Procedure Diagnosis: Severe CAD, Successful PCI and Normal Intracardiac Pressures Procedure(s) Performed Procedure(s) Performed: Coronary Angiography, Left Heart Cath, Drug Eluting Stent and IVUS Window Shade Cloth Sewer Addi Hairston MD Laser Engraver(s) Azael Estimated Blood Loss Estimated Blood Loss: 10 Medication(s) Medication(s): Fentanyl, Heparin, Lidocaine 1%, Nicardipine, Nitroglycerin and Versed Medication(s): Ticagrelor Summary of Findings Indication: NSTEMI Access: 6 Fr right radial artery Catheters: Loman, JL 3.5, JR4, JR4 guide Findings: LM -large caliber, 20% distal disease prior to bifurcation LAD -medium caliber, hazy 80% proximal stenosis involving takeoff of medium caliber second diagonal. Second diagonal with 95% ostial stenosis. Late mid LAD with 80% stenosis. Distal vessel wraps around apex. Small third diagonal with 90% ostial stenosis Circumflex -medium caliber, high OM1 with 30% proximal stenosis. Mid circumflex with luminal irregularities. RCA -large caliber, dominant, 80 to 90% earlymid stenosis, late mid 60% stenosis. Intermittently ectatic in distal RCA and right posterior AV branch. LVEDP -8 -- PCI -- Antithrombotic therapy: Heparin, ticagrelor Procedure: RCA cannulated with JR4 guide BMW wire passed across lesion into distal vessel [place] IVUS catheter placed into late mid RCA. RCA with diffuse atherosclerotic plaque throughout the midsegment, most severe area 80 to 90% (MLA 2.9 mm), minimally calcified. Proximal to mid RCA stented with 3.0 x 18 mm Connelly drug-eluting stent Stent post-dilated with 4.0 noncompliant balloon IC vasodilators administered for spasm Post procedure MONA 3 flow, stent well expanded with minimal residual stenosis and no apparent cardiac complications. Arterial Closure: TR band Summary: 1. Severe 2 vessel coronary artery disease -80 to 90% earlymid RCA stenosis, 60% latemid stenosis 80% proximal LAD involving bifurcation with D2 with 95% ostial stenosis. 80% latemid LAD. Small D3 90% ostial 2. Normal intracardiac filling pressure 3. Successful PCI of proximal to mid RCA with single drug-eluting stent (3.0 x 18 mm Connelly; postdilated with 4.0 NC). Recommendations: To PCU for continued monitoring Loaded with ticagrelor 180 mg in cath Echo in the a.m. Plan for staged PCI of proximal and mid LAD along with proximal D2 tomorrow. Heparin infusion when TR band removed. Continue IV fluids. N.p.o. overnight. Continue dual-antiplatelet therapy for at least 1 year In the setting of diffuse atherosclerotic plaque will need aggressive ASCVD and lipid management going forward Consult cardiac Rehab Hemodynamics Rest Ao:: 119/67/23 Final Ao: 129/77/21 LV: 138/8 Recommendations Recommendations: PCI without planned CABG Specimens Specimens: None Radiation Exposure (mGy) 1708 Contrast (mls) 80 Fluids (cc crystalloids) Fluids (cc crystalloids): 100 Drains Drains: None Anesthesia Moderate Procedural Complication(s) None Disposition PCU I attest to the content of the Intraoperative Record and any orders documented therein. Any exceptions are noted below. [facility] Card Cath Procedure Codes Cardiac Catheterization Procedure 1: Cardiovascular Cath Procedures: 45550 Coronaries and LHC (+/-LV) Therapeutic Services & Ancillary Proc Procedure 1: Cardiovascular Tx and Anc Procedures: 39542 IV Ultrasound (Coronary or Graft) Moderate Sedation Procedure 1: Sedation/Anesthesia: 83569 Mod Sedation by the same physician;Init15 Min Child Age 5 & Up Procedure 2: Sedation/Anesthesia: 38238 Mod Sedation by the same physician; Ea [id number] Minutes Stenting Procedure 1: Cardiovascular Stent Procedures: 12861 Perc transcatheter placement of intracoronary stent(s), with ang PG Care Time/CCT Total # of Minutes Spent Total Time Spent with Patient: Total time spent is greater than 50% in coordination of care (as documented) at patient's floor/unit and/or counseling patient:
[2019-12-21] MEDS: Heparin IV Standard *NO* Bolus IV SCH ×2 (22:45→22:46)
[2019-12-21] MEDS: METOPROLOL TARTRATE 25 MG TAB PO SCH (23:08)
[2019-12-22 03:48] LABS: Hematocrit (blood only) 40.7 % (42-52); Hemoglobin 14.3 g/dL (14.0-18.0); Mean Corpuscular Hemoglobin 31.7 pg (25-34); Mean Corpuscular Hgb Conc 35.1 g/dL (32-36); Mean Corpuscular Volume 90.2 fL (80-100); Mean Platelet Volume 9.2 fL (7.4-10.4); Platelet Count 210 K/uL (130-400); RDW Coefficient of Variation 12.3 % (11.5-14.5); RDW Standard Deviation 40.6 fL (36.4-46.3); Red Blood Count 4.51 M/uL (4.7-6.1); White Blood Count 7.37 K/uL (4.8-10.8)
[2019-12-22 04:12] LABS: BUN Creatinine Ratio 16.4 (10-20); Calcium 8.3 mg/dl (8.5-10.1); Creatinine Clr Calc Pharmacy 87.9 ml/min; Est GFR (African American) 95.7; Est GFR (Non-African American) 82.6; Potassium 4.2 mmol/L (3.5-5.1)
[2019-12-22 04:19] LABS: Partial Thromboplastin Ratio 2.2
[2019-12-22 04:21] LABS: Troponin I 12.8 ng/ml (0-0.045)
[2019-12-22 04:40] LABS: Partial Thromboplastin Time 60.7 Seconds (21.0-31.0)
--- NOTE | 2019-12-22 05:35 | Electrocardiogram Report ---
Test Reason : Blood Pressure : / mmHG Vent. Rate : 059 BPM Atrial Rate : 059 BPM P-R Int : 150 ms QRS Dur : 086 ms QT Int : 412 ms P-R-T Axes : 042 032 034 degrees QTc Int : 407 ms Sinus bradycardia with occasional Premature ventricular complexes Otherwise normal ECG No previous ECGs available Confirmed by Cyril Odonnell ([id number]) on 12/22/2019 5:35:05 AM Referred By: Efren Faria Confirmed By:Cyril Odonnell
[2019-12-22] MEDS: TICAGRELOR 90 MG TAB PO SCH ×2 (06:38→19:49)
[2019-12-22 08:23] LABS: Chol HDL Ratio 5; Cholesterol 223 mg/dl (0-200); HDL Cholesterol 46 mg/dl; LDL Cholesterol Calculated 149 mg/dl; Triglycerides 140 mg/dl (0-150); VLDL Cholesterol 28 mg/dl
[2019-12-22 08:33] LABS: Estimated Average Glucose 114 mg/dl; Hemoglobin A1C 5.6 % (4.5-5.6)
[2019-12-22] MEDS: lisinopril 5 MG TAB PO SCH (09:07)
[2019-12-22] MEDS: METOPROLOL TARTRATE 25 MG TAB PO SCH ×2 (09:08→19:49)
[2019-12-22] MEDS: ASPIRIN 81 MG ECTAB PO SCH (09:08)
--- NOTE | 2019-12-22 11:22 | Cardiology Progress Note ---
Date of Service December 22, 2019 Assessment & Plan (1) NSTEMI (non-ST elevated myocardial infarction): 2. Multivessel CAD 3. Dyslipidemia Has remained chest pain free. Echo this morning showed preserved LV function. Plan for staged PCI of LAD/Diagonal today. - Continue heparin infusion - Continue DAPT with ASA/Ticagrelor - Continue metoprolol/lisinopril - Aggressive lipid management - change to crestor 40mg Admission and Anticipated Discharge Date Admission Date: December 21, 2019 Subjective Feeling well this morning. No additional chest pain. Telemetry unremarkable. Review of Systems Review of Systems: All systems reviewed & are unremarkable except as noted in HPI & below Physical Exam Physical Exam: General: Comfortable, no acute distress HEENT: Sclerae anicteric, mucous membranes moist Lungs: Clear to auscultation bilaterally Cardiac: Regular rate and rhythm, no murmurs Abdomen: Soft, nontender Extremities: Warm, well perfused, no edema. 2+ RT radial artery, no ecchym osis/hematoma Neuro: Nonfocal Psych: Alert orient x3, normal affect and mood Results & Data ([facility]) Vital Signs (Past 12 Hours) Vital Signs Temp Pulse Pulse Resp BP Pulse Ox 12/22/19 11:05 98.1 F 61 19 142/92 H 95 12/22/19 09:40 66 12/22/19 07:33 98.1 F 58 L 18 126/85 96 12/22/19 03:04 98.1 F 59 L 17 124/82 96 12/22/19 00:57 60 16 148/85 H 98 12/21/19 23:26 98.2 F 68 17 125/78 95 PG Care Time/CCT Total # of Minutes Spent Total Time Spent with Patient: Total time spent is greater than 50% in coordination of care (as documented) at patient's floor/unit and/or counseling patient: Coding Level of Care Code 62280 Subseq Hosp Care Lvl 3 Diagnoses NSTEMI (non-ST elevated myocardial infarction) I21.4
--- NOTE | 2019-12-22 11:45 | XCELERA ---
[id number]
--- NOTE | 2019-12-22 11:55 | Hospitalist Progress Note ---
Date of Service December 22, 2019 Assessment & Plan (1) NSTEMI (non-ST elevated myocardial infarction): Patient presented with reports of chest discomfort, diaphoresis, shortness of breath, lightheadedness In the ED, initial troponin 1.69, EKG without acute ST changes Risk factors: + Family history (brother fatal [place] at age 53) S/p Cardiac cath with PCI to prox to mid RCA yesterday Planned for staged PCI of prox and mid LAD today Continue heparin drip Currently on ASA and brilinta Started on statin Lipid panel showed total cholesterol of 223, LDL of 149, HDL 46 A1c of 5.6 (2) DVT prophylaxis: Currently on heparin for NSTEMI Admission and Anticipated Discharge Date Admission Date: December 21, 2019 Subjective Patient seen and examined Reports chest discomfort has resolved. Denied any dizziness, palpitations, cough, SOB, EVANS, nausea, vomiting Reports generalized weakness No fevers, chills No abd pain, diarrhea Physical Exam Constitutional: + well hydrated and + obese; no acute distress Eyes: PERRL, conjunctivae normal, anicteric sclerae ENMT: external ear and nose normal, oropharynx normal Respiratory: normal respiratory effort, lungs clear to auscultation Cardiovascular: RRR, no murmur, no edema Gastrointestinal (Abdomen): normal bowel sounds, soft, nontender, no hepatosplenomegaly Musculoskeletal: no cyanosis or clubbing, extremities motor strength 5/5 Neurologic: PERRL, EOMI, accommodation nl, no face palsy, no dysarthria Psychiatric: A+Ox3, euthymic affect Results & Data Results & Data ([facility]) Vital Signs (Past 12 Hours) Vital Signs Temp Pulse Pulse Resp BP Pulse Ox 12/22/19 11:05 36.7 C 61 19 142/92 H 95 12/22/19 09:40 66 12/22/19 07:33 36.7 C 58 L 18 126/85 96 12/22/19 03:04 36.7 C 59 L 17 124/82 96 12/22/19 00:57 60 16 148/85 H 98 Laboratory Results Laboratory Results - last 24 hr 12/21/19 12/21/19 12/21/19 15:15 15:15 15:15 WBC 8.64 RBC 4.92 Hgb 15.6 Hct 44.8 MCV 91.1 MCH 31.7 MCHC 34.8 RDW Std Deviation 40.9 RDW Coeff of Devin 12.2 Plt Count 248 MPV 9.3 Immature Gran % (Auto) 0.2 Neut % (Auto) 60.6 Lymph % (Auto) 25.5 Bradley % (Auto) 10.4 Eos % (Auto) 2.7 Baso % (Auto) 0.6 Neut # (Auto) 5.24 Lymph # (Auto) 2.20 Bradley # (Auto) 0.90 H Eos # (Auto) 0.23 Baso # (Auto) 0.05 Immature Gran # (Auto) 0.02 PT 10.4 INR 1.0 APTT 27.6 PTT Ratio 1.0 D-Dimer 190 Sodium 141 Potassium 4.0 Chloride 107 Carbon Dioxide 30 Anion Gap 4.0 BUN 15 Creatinine 1.10 Est Cr Clr Drug Dosing 79.9 Est GFR ( Amer) 85.3 Est GFR (Non-Af Amer) 73.6 BUN/Creatinine Ratio 13.7 Glucose 69 L Estimat Average Glucose Hemoglobin A1c Calcium 8.7 Total Bilirubin 0.4 AST 27 ALT 36 Alkaline Phosphatase 70 Total Creatine Kinase 240 CK-MB (CK-2) 15.1 H CK/CKMB % Calc 6.3 H Troponin I 1.690 H* Total Protein 7.7 Albumin 3.8 Globulin 3.9 Albumin/Globulin Ratio 1.0 Triglycerides Cholesterol LDL Cholesterol, Calc VLDL Cholesterol, Calc HDL Cholesterol Cholesterol/HDL Ratio Lipase 101 COVID-19 Eval Order SARS-CoV-2, RNA, NAAT 12/21/19 12/21/19 12/21/19 16:40 16:40 21:10 WBC RBC Hgb Hct MCV MCH MCHC RDW Std Deviation RDW Coeff of Devni Plt Count MPV Immature Gran % (Auto) Neut % (Auto) Lymph % (Auto) Bradley % (Auto) Eos % (Auto) Baso % (Auto) Neut # (Auto) Lymph # (Auto) Bradley # (Auto) Eos # (Auto) Baso # (Auto) Immature Gran # (Auto) PT INR APTT PTT Ratio D-Dimer Sodium Potassium Chloride Carbon Dioxide Anion Gap BUN Creatinine Est Cr Clr Drug Dosing Est GFR ( Amer) Est GFR (Non-Af Amer) BUN/Creatinine Ratio Glucose Estimat Average Glucose Hemoglobin A1c Calcium Total Bilirubin AST ALT Alkaline Phosphatase Total Creatine Kinase CK-MB (CK-2) CK/CKMB % Calc Troponin I 7.980 H* Total Protein Albumin Globulin Albumin/Globulin Ratio Triglycerides Cholesterol LDL Cholesterol, Calc VLDL Cholesterol, Calc HDL Cholesterol Cholesterol/HDL Ratio Lipase COVID-19 Eval [facility] SARS-CoV-2, RNA, NAAT NEGATIVE 12/22/19 12/22/19 12/22/19 03:31 03:31 03:31 WBC 7.37 RBC 4.51 L Hgb 14.3 Hct 40.7 L MCV 90.2 MCH 31.7 MCHC 35.1 RDW Std Deviation 40.6 RDW Coeff of Devin 12.3 Plt Count 210 MPV 9.2 Immature Gran % (Auto) Neut % (Auto) Lymph % (Auto) Bradley % (Auto) Eos % (Auto) Baso % (Auto) Neut # (Auto) Lymph # (Auto) Bradley # (Auto) Eos # (Auto) Baso # (Auto) Immature Gran # (Auto) PT INR APTT 60.7 H* PTT Ratio 2.2 D-Dimer Sodium 140 Potassium 4.2 Chloride 110 H Carbon Dioxide 26 Anion Gap 4.0 BUN 16 Creatinine 1.00 Est Cr Clr Drug Dosing 87.9 Est GFR ( Amer) 95.7 Est GFR (Non-Af Amer) 82.6 BUN/Creatinine Ratio 16.4 Glucose 96 Estimat Average Glucose Hemoglobin A1c Calcium 8.3 L Total Bilirubin AST ALT Alkaline Phosphatase Total Creatine Kinase CK-MB (CK-2) CK/CKMB % Calc Troponin I 12.800 H* Total Protein Albumin Globulin Albumin/Globulin Ratio Triglycerides Cholesterol LDL Cholesterol, Calc VLDL Cholesterol, Calc HDL Cholesterol Cholesterol/HDL Ratio Lipase COVID-19 Eval Order SARS-CoV-2, RNA, NAAT 12/22/19 12/22/19 03:31 03:31 WBC RBC Hgb Hct MCV MCH MCHC RDW Std Deviation RDW Coeff of Devin Plt Count MPV Immature Gran % (Auto) Neut % (Auto) Lymph % (Auto) Bradley % (Auto) Eos % (Auto) Baso % (Auto) Neut # (Auto) Lymph # (Auto) Bradley # (Auto) Eos # (Auto) Baso # (Auto) Immature Gran # (Auto) PT INR APTT PTT Ratio D-Dimer Sodium Potassium Chloride Carbon Dioxide Anion Gap BUN Creatinine Est Cr Clr Drug Dosing Est GFR ( Amer) Est GFR (Non-Af Amer) BUN/Creatinine Ratio Glucose Estimat Average Glucose 114 Hemoglobin A1c 5.6 Calcium Total Bilirubin AST ALT Alkaline Phosphatase Total Creatine Kinase CK-MB (CK-2) CK/CKMB % Calc Troponin I Total Protein Albumin Globulin Albumin/Globulin Ratio Triglycerides 140 Cholesterol 223 H LDL Cholesterol, Calc 149 VLDL Cholesterol, Calc 28 HDL Cholesterol 46 Cholesterol/HDL Ratio 5 Lipase COVID-19 Eval Order SARS-CoV-2, RNA, NAAT
[2019-12-22] MEDS: ROSUVASTATIN CALCIUM 20 MG TAB PO SCH (12:40)
[2019-12-22] MEDS ORDERED: niCARdipine HCL INJ 2.5 MG/ML 10 ML AMP ONE (14:50)
[2019-12-22] MEDS ORDERED: HEPARIN (PORCINE) 1000 UNIT/ML 10 ML (CATH LAB USE ONLY) ONE (14:50)
[2019-12-22] MEDS ORDERED: fentaNYL citrate 100 MCG/2 ML VIAL ONE ×2 (14:51→16:09)
[2019-12-22] MEDS ORDERED: NITROGLYCERIN/D5W 100MCG/ML 20ML SYR ONE (14:51)
[2019-12-22] MEDS ORDERED: MIDAZOLAM HCL 1 MG/ML 2ML VIAL ONE ×2 (14:51→16:09)
--- NOTE | 2019-12-22 15:41 | Pre Anesthesia Assessment ---
Date of Service December 22, 2019 Pre Sedation Assessment Vital Signs Temp Pulse Pulse Resp BP BP Pulse Ox 12/22/19 14:00 57 L 18 116/75 96 12/22/19 11:05 98.1 F 61 19 142/92 H 95 12/22/19 09:40 66 12/22/19 07:33 98.1 F 58 L 18 126/85 96 12/22/19 03:04 98.1 F 59 L 17 124/82 96 12/22/19 00:57 60 16 148/85 H 98 12/21/19 23:26 98.2 F 68 17 125/78 95 12/21/19 20:55 65 17 174/84 H 95 12/21/19 20:25 61 18 130/88 96 12/21/19 19:55 64 17 172/77 H 95 12/21/19 19:40 60 17 120/59 L 96 12/21/19 19:25 58 L 18 159/91 H 95 12/21/19 19:10 97.3 F L 56 L 17 141/93 H 96 12/21/19 17:35 66 17 151/91 H 98 12/21/19 17:00 66 17 151/91 H 98 12/21/19 16:30 60 17 128/93 97 12/21/19 16:24 61 20 142/84 H 97 12/21/19 16:00 61 15 95 Cardiovascular RRR, no murmur, no edema Respiratory normal respiratory effort, lungs clear to auscultation Pre-Sedation Airway Assessment Smoking Status: Never smoker Hx Sleep Apnea: No Hx Difficult Intubation: No Short, Thick Neck: No Thyromental Distance: > or= 3.5 Finger Breadths Oral Cavity: + WNL Mallampati Class: III ASA: ASA2 NPO Status Date of Last Intake of Fluids: 12/22/19 Time of Last Intake of Fluids: 07:00 Date of Last Intake of Solid Food: 12/21/19 Time of Last Intake of Solid Foods: 18:00 Procedure Planning Contraindications for Sedation: none Current Medications Reviewed: Yes Notes The planned sedation has been discussed with the patient. Informed Consent was obtained. I have identified the patient, determined the appropriateness of sedation and have assessed the patient immediately prior to the procedure. All medicine(s) and interventions are by my order.
[2019-12-22] MEDS ORDERED: SODIUM CHLORIDE 0.9% 1000ML 1,000 ML IV SCH (17:45)
--- NOTE | 2019-12-22 17:46 | Post Anesthesia Assessment ---
Date of Service December 22, 2019 Post Sedation Assessment Vital Signs Temp Pulse Pulse Resp BP Pulse Ox 12/22/19 14:00 57 L 18 116/75 96 12/22/19 11:05 98.1 F 61 19 142/92 H 95 12/22/19 09:40 66 12/22/19 07:33 98.1 F 58 L 18 126/85 96 12/22/19 03:04 98.1 F 59 L 17 124/82 96 12/22/19 00:57 60 16 148/85 H 98 12/21/19 23:26 98.2 F 68 17 125/78 95 12/21/19 20:55 65 17 174/84 H 95 12/21/19 20:25 61 18 130/88 96 12/21/19 19:55 64 17 172/77 H 95 12/21/19 19:40 60 17 120/59 L 96 12/21/19 19:25 58 L 18 159/91 H 95 12/21/19 19:10 97.3 F L 56 L 17 141/93 H 96 Recovery Score Activity: Moves 4 extremities Respiration: Deep Breath/Cough Circulation: +/-20% PreAnes Value Consciousness: Fully Awake Oxygen Saturation: O2 needed for >90% Discharge Sedation Level of Care: Fast Track Phase II Post Sedation Plan On clinical assessment, the patient appears to have tolerated the sedation without complications. Patient is recovering as anticipated. Patient will continue to be monitored by nursing and may be discharged when sedation discharge criteria are met per below protocol. Upon Completions of procedure up to 15 minutes continue every 5 minute vital signs and the P.A.R. score; then discharge to a Phase I or Fast Track to Phase II per the following guidelines: * Discharge Patient to appropriate Phase II area if PAR is 8 or greater or return to pre- procedure baseline. The post - procedure orders will be as directed. * If PAR score is less than 8 or not return to pre-procedure baseline then patient will follow Phase I monitoring till PAR is reached for Phase II. The Phase I may be done in procedure room or may call to secure a Phase I area. * If naloxone or flumazenil are used for reversal, hold in Phase I for continued monitoring from when last reversal dose was given for a minimum of 60 minutes or longer pending the nurse and/or physician discretion of patient condition before discharge to Phase II. Please call the Sedation Physician to re-evaluate and complete post-note for discharge to Phase II area. Do NOT discharge from procedure sedation or Phase 1 until post- sedation eval uation note is complete by procedure /sedation MD Sedation Discharge Instructions to be given to the patient at discharge to home.
--- NOTE | 2019-12-22 17:50 | Post Operative Brief Note ---
Cardiology Brief Post Op Date of Surgery December 22, 2019 Pre & Post Diagnosis Multivessel CAD Procedure -- Parts Cataloger Addi Hairston MD Sap Bods Developer Erik Estimated Blood Loss 10 Findings See Below 1. Successful PCI of proximal to mid LAD (2.75 x 28 Xience; post-dilated with 3. 5 NC). -PTCA ostium of D3 with 2.0 balloon. 2. Successful PCI of late-mid LAD (2.5 x 12 Óscar). 3. Successful PCI of late-mid to distal RCA with (3.0 x 30 [place]; post-dilated with 3.5 NC). Anesthesia Type RN Sedation Complications none Disposition Disposition: PCU
[2019-12-22] MEDS: HEPARIN SODIUM/DEXTROSE 25,000 UNITS/500 ML BAG IV SCH (18:43)
[2019-12-22] MEDS ORDERED: Nursing to Pharmacy Communication SCH (18:45)
--- NOTE | 2019-12-22 19:31 | Electrocardiogram Report ---
Test Reason : Blood Pressure : / mmHG Vent. Rate : 056 BPM Atrial Rate : 056 BPM P-R Int : 158 ms QRS Dur : 088 ms QT Int : 424 ms P-R-T Axes : 058 058 045 degrees QTc Int : [address] elevation, consider early repolarization Abnormal ECG When compared with ECG of 21-DEC-2019 14:56, Premature ventricular complexes are no longer Present Confirmed by Cyril Odonnell ([id number]) on 12/22/2019 7:30:54 PM Referred By: Efren Faria Confirmed By:Cyril Odonnell
[2019-12-22] MEDS ORDERED: ATORVASTATIN 40 MG TAB PO SCH (21:00)
--- NOTE | 2019-12-22 21:11 | Cardiac Catheterization ---
[facility] Data: Drilling Inspector Cardiac Status Clinical evaluation leading to the procedure CAD Presenation: Non STEMI Anginal Classification: CCS IV Heart Failure: No Cardiogenic Shock within 24 Hours: No Cardiac Arrest within 24 Hours: No Imaging Studies Past 6 Months: Yes Stress Studies Past 6 Months: No Diagnostic Physicians Name: Addi Hairston MD Status: Elective Closure Device Percutaneous Entry Location: Radial Closure Device: Radial Band Recommendations: PCI without planned CABG PCI Indication: PCI for high risk Non-MALOU Lesion Segment Name: proximal LAD Culprit Artery: Yes Stenosis Prior to Rx (%): 80-90 Chronic Total Occlusion: No IVUS: Yes FFR: No Pre-Procedure MONA Flow: 2 Previously Treated Lesion: No Lesion Complexity: High/C Lesion Length (mm): 28 Thrombus Present: Yes Bifurcation Lesion: Yes Guidewire Across Lesion: Stenosis Post-Procedure (%): 0 Post-Procedure MONA Flow: 3 Devices(s) Deployed: Yes Yes Lesion #2 Segment Name: mid to distal RCA Culprit Artery: No Stenosis Prior to Rx (%): 70 Chronic Total Occlusion: No IVUS: No FFR: No Pre-Procedure MONA Flow: 3 Previously Treated Lesion: No Lesion Complexity: Non-High/Non-C Lesion Length (mm): 28 Thrombus Present: No Bifurcation Lesion: No Guidewire Across Lesion: Yes Stenosis Post-Procedure (%): 0 Post-Procedure MONA Flow: 3 Devices(s) Deployed: Yes Intraprocedure Events Significant Disection: No Perforation: No Cardiac Cath Procedure Full Procedure Date December 22, 2019 Pre-Procedure Diagnosis Pre-Procedure Diagnosis: Non STEMI AUC Score AUC Score: 8 Post-Procedure Diagnosis Post-Procedure Diagnosis: Severe CAD, Successful PCI and Normal Intracardiac Pressures Procedure(s) Performed Procedure(s) Performed: Coronary Angiography, Left Heart Cath, Drug Eluting Stent and IVUS Market Research Associate Addi Hairston MD Superintendent Warehouse(s) [place] Estimated Blood Loss Estimated Blood Loss: 10 Medication(s) Medication(s): Fentanyl, Heparin, Lidocaine 1%, Nicardipine, Nitroglycerin and Versed Medication(s): Ticagrelor Summary of Findings Indication: Staged PCI Presented yesterday with high risk NSTEMI. Proximal RCA stented with a single JOI. Brought back today for intervention to severe proximal, mid LAD disease. Access: 6 Fr slender right radial artery Catheters: EBU 3.5 guide -- PCI -- Antithrombotic therapy: Heparin, ticagrelor Procedure: Left main cannulated with EBU 3.5 guide BMW wire passed across lesion into distal LAD Attempted to pass pilot instructor 50 wire into second diagonal but unable to cross subtota l occlusion. Grill Attendant 50 wire placed into third diagonal with 80% ostial stenosis. IVUS ([employer]) catheter placed into distal LAD. Pullback revealed severe mid disease and severe diffuse disease with thrombus extending from mid segment across second and third diagonals back to takeoff of high first diagonal Mid LAD lesion predilated with 2.0 compliant balloon Ostium of D3 dilated with 2.0 balloon Dilated mid LAD lesion stented with 2.5 x 12 mm [place] drug-eluting stent Stent postdilated with stent balloon Proximal to mid LAD stented with 2.75 x 28 mm Xience Lisa drug-eluting stent Repeat IVUS pullback revealed underexpanded proximal stent Stent post-dilated with 3.5 noncompliant balloon IC vasodilators administered for spasm Post procedure MONA 3 flow, stents well expanded with minimal residual stenosis and no apparent cardiac complications. Repeat angiography of right coronary artery revealed widely patent proximal mid stent but severe latemid disease with diffuse moderate disease extending into distal segment RCA cannulated with JR4 guide BMW wire placed into distal RCA Mid to distal RCA stented with 3.0 x 30 mm Óscar drug-eluting stent Stent postdilated with 3.5 NC balloon IC vasodilators administered for spasm Post procedure MONA 3 flow, stents well expanded with minimal residual stenosis and no apparent cardiac complications. Arterial Closure: TR band Summary: 1. Severe multi-vessel coronary artery disease -80% acute thrombotic proximal LAD stenosis, 80% latemid LAD stenosis. Subtotally occluded D2. 90% ostial D3 Initial proximal to mid RCA stent placed yesterday widely patent. 60 to 70% latemid RCA stenosis extending into distal RCA 2. Normal intracardiac filling pressure. LVEDP 9 3. Successful PCI of proximal to mid LAD with single drug-eluting stent (2.75 x 28 mm Xience; postdilated with 3.5 NC). -PTCA of 3rd diagonal ostium with 2.0 balloon 4. Successful PCI of latemid LAD with 2.5 x 12 mm Óscar drug-eluting stent 5. Successful PCI of mid to distal RCA with 3.0 x 30 mm [place] drug-eluting stent (postdilated with 3.5 NC). Recommendations: To PCU for continued monitoring Continue dual-antiplatelet therapy for at least 1 year. Consider extended in the setting of multivessel disease Continue aggressive ASCVD risk factor modification Consult cardiac Rehab Hemodynamics Rest Ao:: 111/79/95 Final Ao: 103/75/83 LV: 113/9 Recommendations Recommendations: PCI without planned CABG Specimens Specimens: None Radiation Exposure (mGy) 4101 Contrast (mls) 130 Fluids (cc crystalloids) Fluids (cc crystalloids): 204 Drains Drains: None Anesthesia Moderate Procedural Complication(s) None Disposition PCU I attest to the content of the Intraoperative Record and any orders documented therein. Any exceptions are noted below. In[employer] Card Cath Procedure Codes Cardiac Catheterization Procedure 1: Cardiovascular Cath Procedures: 45589 Left Heart Cath (+/-LV) Therapeutic Services & Ancillary Proc Procedure 1: Cardiovascular Tx and Anc Procedures: 10657 IV Ultrasound (Coronary or Graft) Moderate Sedation Procedure 1: Sedation/Anesthesia: 38067 Mod Sedation by the same physician;Init15 Min Child Age 5 & Up Procedure 2: Sedation/Anesthesia: 49785 Mod Sedation by the same physician; Ea [id number] Minutes Angioplasty Procedure 1: Cardiovascular Angioplasty Procedures: 24848 PTCA; ea addl branch of a major cor art RC LC LD Stenting Procedure 1: Cardiovascular Stent Procedures: 79839 Perc transcatheter placement of intracoronary stent(s), with ang Procedure 2: Cardiovascular Stent Procedures: 06136 Ea addl branch of a major coronary artery PG Care Time/CCT Total # of Minutes Spent Total Time Spent with Patient: Total time spent is greater than 50% in coordinat ion of care (as documented) at patient's floor/unit and/or counseling patient:
[2019-12-23 07:03] LABS: Hematocrit (blood only) 42.5 % (42-52); Hemoglobin 14.4 g/dL (14.0-18.0); Mean Corpuscular Hemoglobin 31.2 pg (25-34); Mean Corpuscular Hgb Conc 33.9 g/dL (32-36); Mean Platelet Volume 9.5 fL (7.4-10.4); Platelet Count 227 K/uL (130-400); RDW Coefficient of Variation 12.4 % (11.5-14.5); RDW Standard Deviation 42.1 fL (36.4-46.3); Red Blood Count 4.62 M/uL (4.7-6.1); White Blood Count 8.29 K/uL (4.8-10.8)
[2019-12-23 07:51] LABS: BUN Creatinine Ratio 13.9 (10-20); Calcium 8.4 mg/dl (8.5-10.1); Creatinine Clr Calc Pharmacy 79.2 ml/min; Est GFR (African American) 84.4; Est GFR (Non-African American) 72.8
[2019-12-23] MEDS: ROSUVASTATIN CALCIUM 20 MG TAB PO SCH (08:07)
[2019-12-23] MEDS: ASPIRIN 81 MG ECTAB PO SCH (08:07)
[2019-12-23] MEDS: TICAGRELOR 90 MG TAB PO SCH (08:07)
--- NOTE | 2019-12-23 08:07 | Electrocardiogram Report ---
Test Reason : Blood Pressure : / mmHG Vent. Rate : 058 BPM Atrial Rate : 058 BPM P-R Int : 150 ms QRS Dur : 078 ms QT Int : 406 ms P-R-T Axes : 042 035 004 degrees QTc Int : 398 ms Sinus bradycardia Possible Septal infarct , age undetermined Abnormal ECG When compared with ECG of 22-DEC-2019 06:24, Borderline Criteria for Septal infarct is now Present ST no longer elevated in Inferior leads Confirmed by Efren Way ([id number]) on 12/23/2019 8:07:12 AM Referred By: Efren Faria Confirmed By:Efren Way
[2019-12-23] MEDS: lisinopril 5 MG TAB PO SCH (08:08)
[2019-12-23] MEDS: METOPROLOL TARTRATE 25 MG TAB PO SCH (08:08)
--- NOTE | 2019-12-23 08:32 | Electrocardiogram Report ---
Test Reason : Blood Pressure : / mmHG Vent. Rate : 057 BPM Atrial Rate : 057 BPM P-R Int : 158 ms QRS Dur : 088 ms QT Int : 400 ms P-R-T Axes : 064 073 042 degrees QTc Int : 389 ms Sinus bradycardia Minor ST elevation in Inferior leads Abnormal ECG When compared with ECG of 22-DEC-2019 18:26, Criteria for Septal infarct are no longer Present Minor ST elevation now present in Inferior leads Confirmed by Efren Way ([id number]) on 12/23/2019 8:31:57 AM Referred By: Efren Faria Confirmed By:Efren Way
--- NOTE | 2019-12-23 10:08 | Cardiology Progress Note ---
Date of Service December 23, 2019 Assessment & Plan (1) NSTEMI (non-ST elevated myocardial infarction): 2. Multivessel CAD 3. Dyslipidemia Patient doing well from a cardiac standpoint and Ok for discharge today. -- home on DAPT with ASA/Ticagrelor -- continue crestor 40mg daily -- continue metoprolol 25 mg bid -- increase lisinopril to 10mg daily -- Follow-up with me in 2 weeks. -- Can return to work on 12/26. Admission and Anticipated Discharge Date Admission Date: December 21, 2019 Subjective Feeling well this morning. No additional chest pain. Brief NSVT - 4 beats overnight on telemetry Review of Systems Review of Systems: All systems reviewed & are unremarkable except as noted in HPI & below Physical Exam Physical Exam: General: Comfortable, no acute distress HEENT: Sclerae anicteric, mucous membranes moist Lungs: Clear to auscultation bilaterally Cardiac: Regular rate and rhythm, no murmurs Abdomen: Soft, nontender Extremities: Warm, well perfused, no edema. 2+ RT radial artery, no ecchymosis/hematoma Neuro: Nonfocal Psych: Alert orient x3, normal affect and mood Results & Data ([facility]) Vital Signs (Past 12 Hours) Vital Signs Temp Pulse Resp BP Pulse Ox 12/23/19 07:53 99.3 F 60 18 145/82 H 94 12/23/19 04:28 98.4 F 55 L 18 112/69 94 12/22/19 23:51 97.9 F 53 L 18 105/67 96 PG Care Time/CCT Total # of Minutes Spent Total Time Spent with Patient: Total time spent is greater than 50% in coordination of care (as documented) at patient's floor/unit and/or counseling patient: Coding Level of Care Code 94907 Subseq Hosp Care Lvl 3 Diagnoses NSTEMI (non-ST elevated myocardial infarction) I21.4
--- NOTE | 2019-12-23 10:49 | Discharge Summary ---
Date of Service December 23, 2019 Admission HPI Per Admitting Provider 59-year-old male with no significant PMH who presents to the ED for evaluation of chest pain. Patient reports he woke up around 3:00 this morning with feelings of indigestion and anxiety. Patient reports he was able to fall back asleep. He woke up feeling in his usual state of health and had his usual cup of coffee. Patient reports that while he was driving to work, he started to feel indigestion again. 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 Patient was seen by the school nurse and was given Advil. Patient reports he started to feel better after that. Patient called PCPs office to make an appointment however was referred to the ED for further evaluation. Patient reports he has been having feelings of indigestion over the past several weeks. Currently, patient reports he is chest pain-free. He reports he otherwise has been feeling well recently. No other recent illnesses, fevers, chills. Denies abdominal pain, nausea, vomiting, diarrhea. No cough or sputum production. Denies urinary symptoms. In the ED, initial troponin is 1.69, EKG without acute ST changes. Patient is hemodynamically stable. Dr. Hairston was notified by the ED and patient will be going to the [facility] this evening. Patient received a full dose aspirin and heparin 8000 unit bolus. Admission Exam Per Admitting Provider Constitutional: WD/WN, vitals as above Eyes: PERRL, conjunctivae normal, anicteric sclerae ENMT: external ear and nose normal, oropharynx normal Respiratory: normal respiratory effort, lungs clear to auscultation Cardiovascular: Rate/Rhythm: regular rate and regular rhythm Vessels: normal peripheral pulses Extremities: no edema Gastrointestinal (Abdomen): normal bowel sounds, soft, nontender, no hepatosplenomegaly Musculoskeletal: no cyanosis or clubbing, extremities motor strength 5/5 Skin: no rashes, warm and dry Neurologic: PERRL, EOMI, accommodation nl, no face palsy, no dysarthria Psychiatric: A+Ox3, euthymic affect Principal Diagnosis Non ST Elevated Myocardial Infarction (NSTEMI) S/P cardiac stents Hyperlipidemia Discharge Exam Constitutional + well hydrated and + obese; no acute distress Eyes PERRL, conjunctivae normal, anicteric sclerae ENMT external ear and nose normal, oropharynx normal Respiratory normal respiratory effort, lungs clear to auscultation Cardiovascular RRR, no murmur, no edema Gastrointestinal (Abdomen) normal bowel sounds, soft, nontender, no hepatosplenomegaly Musculoskeletal no cyanosis or clubbing, extremities motor strength 5/5 Neurologic PERRL, EOMI, accommodation nl, no face palsy, no dysarthria Psychiatric A+Ox3, euthymic affect Discharge Data Allergies Allergy/AdvReac Type Severity Reaction Status Date / Time No Known Allergies Allergy Verified 12/21/19 16:59 Consultations 12/21/19 16:31 Consult Cardiac Catheterization Stat ED Decision to Admit Stat 12/21/19 19:19 Consult Cardiology Routine 12/21/19 20:14 Consult Cardiac Rehabilitation Routine Procedures Performed Operation Date: 12/21/19 17:30 Actual Procedures s Cineradiography w/Routine Exam - Lj Hairston MD s Drug Eluting Stent SGl Vessel - Lj Hairston MD p Cath, Left with Cors and Vent - Lj Hairston MD s IVUS Coronary Single Vessel - Lj Hairston MD Operation Date: 12/22/19 14:30 Actual Procedures p Drug Eluting Stent SGl Vessel - Lj Hairston MD s IVUS Coronary Single Vessel - Lj Hairston MD s Drug Eluting Stent each ADDTL Vessel - Lj Hairston MD s Cath, Left with Cors and Vent - Lj Hairston MD s Cineradiography w/Routine Exam - Lj Hairston MD Ordered Studies 12/21/19 17:18 CL Cath Imgs for PACS use only Stat 12/22/19 06:39 CL Cath Imgs for PACS use only Routine 12/22/19 17:39 CL IVUS Coronary Single Vessel Routine Hospital Course (1) NSTEMI (non-ST elevated myocardial infarction): Patient presented with reports of chest discomfort, diaphoresis, shortness of breath, lightheadedness In the ED, initial troponin 1.69, EKG without acute ST changes Risk factors: + Family history (brother fatal [place] at age 53) Cath showed multivessel disease S/p Cardiac cath on 12/21/19 with drug eluting stent to prox to mid-RCA S/p Cardiac cath on 12/22/19 with PTCA ostium of D3, successful PCI to prox to mid LAD, PCI to late-mid LAD and PCI to late-mid to distal RCA Patient got a total of 4 stents Hemoglobin A1c was 5.6 Lipid panel showed total cholesterol of 223, LDL of 149, HDL 46 Discharged on Aspirin 81mg daily, Ticagrelor 90mg BID Started on lisinopril, metoprolol and crestor Patient counselled on lifestyle modification such as weight loss and heart healthy diet Patient to follow up with Parts Technician in 2 weeks Will need cardiac rehab outpatient Total Time Total Time Spent Total Time Spent (In Minutes): 40 Total Time Includes: Examination of the Patient, Discharge Planning and Medication Reconciliation Discharge Plan Discharge Items Patient Disposition: Home - Self-Care Reason For Visit: NSTEMI Discharge Diagnosis: Non ST Elevated Myocardial Infarction (NSTEMI) S/P cardiac stents Activity: As commented below Activity Comment: As instructed by Parts Technician Non-emergency contact: Primary Care Provider and Parts Technician Call non-emergency contact if: you have any medication questions and your symptoms worsen Follow-up/Referrals: Efren Faria MD [Primary Care Provider] - Diet: Heart Healthy and Low Fat Addtl Attending Provider Instructions: Mr Chamberlain. You came to the hospital complaining of chest discomfort. You were evaluated and found to have an NSTEMI (Heart attack) You required cardiac catheterization and got 4 stents put into the blood vessels in your heart. You were started on a couple of new medications. Please ensure you take these medications as prescribed. You are discharged on aspirin and brilinta. You were also started on crestor, lisinopril and metoprolol. Please stop taking and don't take NSAIDS such as ibuprofen, advil etc. Use tylenol as needed for pain. It is very important that you follow up with Parts Technician in 2 weeks. It was a pleasure taking care of you. Pending Studies at Discharge: No Stand-Alone Forms: My [facility] [employer] Work/School Release (Inpt), Smoking Cessation Medications and DC Order Prescriptions: New rosuvastatin [Crestor] 20 mg Tablet 40 mg PO QAM 30 Days Qty: 60 RF: 0 metoprolol tartrate 25 mg Tablet 25 mg PO BID 30 Days Qty: 60 RF: 0 Brilinta 90 mg Tablet 90 mg PO BID 30 Days Qty: 60 RF: 0 lisinopril 10 mg tablet 10 mg PO DAILY 30 Days Qty: 30 RF: 0 aspirin 81 mg Tablet,Delayed Release (Dr/Ec) 81 mg PO QAM 30 Days Qty: 30 RF: 0 Continued multivitamin Tablet 1 tab PO DAILY RF: 0 Probiotic 3 billion cell Capsule 0 mmu cells PO DAILY RF: 0 Triple Magnesium Complex 400 mg magnesium Capsule 1 mg PO DAILY RF: 0 Discontinued ibuprofen [Advil] 200 mg Tablet 400 mg PO Q6H PRN (Reason: Pain) RF: 0 Discharge Orders: Discharge Order (Routine); Ordered 12/23/19 Ordered By: Kristin Paulson Admission Data Admit Date/Time: 12/21/19 16:42 Attending Provider: Kristin Paulson I. Admit Provider: Livia Murphy Primary Care Provider: Efren Faria Other Providers: Lj Hairston ; Livia Murphy ; Rashard Purdy Other Interventions: Discharge Summary Assessment (RN) Last Done: 12/23/19 11:14
== END 2019-12-23 11:51 | disposition home or self-care (01) | DRG 246 ==
LOC: ED 14:41 → CC 17:35 → SUATTDRO 17:36 → 2S 19:14